=== PATIENT | female | born 1975 | race American Indian/Alaskan Native ===

== ENCOUNTER 2017-02-21 05:32 | Emergency (ER) | payer OTHER ==
[2017-02-21 08:17] LABS: Basophils % (Auto) 0.6 % (0.0-1.8); Eosinophils % (Auto) 4.8 % (0.0-4.3); Hematocrit 38.1 % (30.3-42.9); Hemoglobin 12.2 gm/dl (10.1-14.3); Mean Corpuscular HGB Conc 32 % (30-34); Mean Corpuscular Hemoglobin 27 pg (28-32); Mean Corpuscular Volume 85 fl (79-97); Red Blood Count 4.49 M/mm3 (3.65-5.03); Red Cell Distribution Width 15.1 % (13.2-15.2); White Blood Count 8.3 K/mm3 (4.5-11.0)
[2017-02-21 08:29] LABS: Anion Gap 21 mmol/L; BUN/Creatinine Ratio 8.33; Blood Urea Nitrogen 5 mg/dL (7-17); Calcium 9.2 mg/dL (8.4-10.2); Carbon Dioxide 20 mmol/L (22-30); Chloride 97.8 mmol/L (98-107); Glucose 93 mg/dL (65-100); Potassium 3.6 mmol/L (3.6-5.0); Sodium 135 mmol/L (137-145)
[2017-02-21 08:55] LABS: Platelet Count 324 K/mm3 (140-440)
[2017-02-21] MEDS ORDERED: MORPHINE IV ONE ×2 (11:25→14:18)
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
[2017-02-21] MEDS ORDERED: NACL ONE (13:10)
--- NOTE | 2017-02-21 13:12 | XRay Report ---
AP CHEST: HISTORY: Hypertension AP view of the chest demonstrates a normal mediastinal and cardiac contour with clear lungs and normal bony and soft tissue structures. IMPRESSION: Unremarkable AP chest.
[2017-02-21 13:47] VITALS: BP 144/83
--- NOTE | 2017-02-21 14:12 | Cat Scan Report ---
CTA CHEST INDICATION: Shortness of breath, elevated d-dimer. COMPARISON: CXR from earlier today. FINDINGS: Chest CTA performed following intravenous administration of 100 cc of Omnipaque 350. Rotational MIP's also obtained. Normal heart size. No aortic aneurysm, dissection or suspicious pulmonary arterial filling defects, to the extent assessed. No size significant adenopathy. Patent central airway, though few bilateral lower lobe bronchi posteromedially slightly thickwalled and with minimal intraluminal fluid. Approximately 1.7 cm peripheral right upper lobe opacity/pneumonia, axial image 58, series 2. Otherwise clear lungs. Somewhat asymmetrically prominent/possibly enlarged left thyroid lobe with questionable 1.5 cm intrinsic hypodensity partially imaged as on axial image 6. Slight nonspecific distal esophageal prominence. Cholecystectomy clips without other significant imaged upper abdominal finding. Mild mid to lower thoracic spine degenerative spurring. CONCLUSION: Subtle peripheral right upper lobe pneumonia and mild bilateral lower lobe bronchitis possible without CT evidence of pulmonary embolism, as described. Please correlate. Thank you for the opportunity to participate in this patient's care.
--- NOTE | 2017-02-21 14:17 | XRay Report ---
LEFT KNEE, 3 views: History: Left knee pain. Moderate to severe osteoarthritic changes are identified in all 3 compartments. The medial compartment is most affected where there is near-complete loss of joint space. No fracture or bone lesion is appreciated. Small joint effusion. IMPRESSION: Osteoarthritis. Small joint effusion. No acute process noted.
== END 2017-02-21 15:43 | disposition home or self-care (01) ==
LOC: ED 05:32
DX: M25.562 Pain in left knee (principal); M79.89 Other specified soft tissue disorders; M79.1 Myalgia; M79.605 Pain in left leg
CPT/HCPCS: 36415; 71010; 71275; 73562; 80048; 84484; 85025; 85379; 93005; 93010; 93971; 96374; 96376; 99285; J2270; Q9967